=== PATIENT | male | born 1985 | race Caucasian/White ===

== ENCOUNTER 2016-06-26 11:19 | Emergency (ER) | payer OTHER ==
[~2016-06-26] VITALS: Ht 180.3 cm; Wt 108.9 kg
[2016-06-26 11:35] VITALS: BP 137/69
== END 2016-06-26 13:27 | disposition home or self-care (01) ==
LOC: ER 11:24
DX: S01.21XA Laceration without foreign body of nose, initial encounter (principal); W22.8XXA Striking against or struck by other objects, initial encounter; Y93.89 Activity, other specified; Y99.8 Other external cause status; Y92.810 Car as the place of occurrence of the external cause
CPT/HCPCS: 12011